=== PATIENT | female | born 1975 | race Caucasian/White ===

== ENCOUNTER → 2016-10-14 | Outpatient (CLI) | payer BC | LOC: FIMAGING 13:41 | PROVIDERS: ATTEND Specialist | DX: R05 Cough (principal); R91.8 Other nonspecific abnormal finding of lung field ==

== ENCOUNTER → 2017-12-19 | Outpatient (CLI) | payer BC | LOC: FIMAGING 13:18 | PROVIDERS: ATTEND Allergy & Immunology Allergy | DX: J84.10 Pulmonary fibrosis, unspecified (principal) ==